=== PATIENT | male | born 1990 ===

== ENCOUNTER 2022-02-27 07:02 | Outpatient (CLI) | payer BC, SELFPAY ==
--- NOTE | ~2022-02-27 | XR_ITS ---
EXAMINATION: XR lumbar spine 2-3V EXAM DATE: 02/27/2022 08:02 INDICATION: Low back pain L sided lower back pain radiating down to pt's heel, majority of the L le g pain is at the posterior knee, x 4 moths, no trauma TECHNIQUE: Lumber spine frontal, lateral, lateral L5-S1 projections for interpretation. There is no prior study for comparison. FINDINGS: Mild to moderate disc disease L2-L5, mild at the other lumbar levels. The vertebral bodies are aligned in the AP dimension. There are no acute fractures identified. Sacrum, sacroiliac joints, sacral arcuate lines are intact. Paraspinal soft tissue is unremarkable. Mild lumbar facet arthropa thy. IMPRESSION: Mild to moderate lumbar disc disease, mild facet arthropathy. Reviewed, dictated and finalized at location B.
--- NOTE | ~2022-02-27 | XR_ITS ---
EXAMINATION: XR knee LT 3V DATE: 02/27/2022 08:02 INDICATION: Left knee pain. TECHNIQUE: 3 views of left knee including standing views were obtained. COMPARISON: None. FINDINGS: Bone alignment is normal. No fracture. There is mild osteoarthritis of patellofemoral harshad rtment characterized by tiny osteophytes. No knee joint effusion. IMPRESSION: 1. Mild left knee osteoarthritis. Reviewed, dictated and finalized at location A.
--- NOTE | ~2022-02-27 | MR_ITS ---
EXAMINATION: MR lumbar spine wo [facility] EXAM DATE: 02/27/2022 07:36 INDICATION: Low back pain . TECHNIQUE: Multi-sequential, multiplanar MR images of the lumbar spine were obtained without contrast . Sagittal T1, T2, T2 fat saturation images. Axial T2 weighted images. There is no prior study for comparison. FINDINGS: There is moderate disc disease L2-L5. The conus medullaris terminates at the L1/2 level and has normal signal intensity and morphology. The vertebral bodies are aligned in the AP dimension. T here are no suspicious marrow signal abnormalities. Paraspinal soft tissue is unremarkable. Level by level evaluation: T12-L1: Disc does not extend beyond the endplate margin. Facet arthropathy: None. Neural foraminal stenosis: No stenosis. Central canal stenosis: No stenosis. L1-L2: Disc does not extend beyond the endplate margin. Facet arthropathy: Mild. Neural foraminal stenosis: No stenosis. Central canal stenosis: No stenosis. L2-L3: There is a mild diffuse disc bulge. Facet arthropathy: Mild. Neural foraminal stenosis: No stenosis. Central canal stenosis: No stenosis. L3-L4: There is a mild diffuse disc bulge. Facet arthropathy: Mild. Neural foraminal stenosis: No stenosis. Central canal stenosis: No stenosis. L4-L5: There is a mild to moderate diffuse disc bulge. Facet arthropathy: Mild. Neural foraminal stenosis: No stenosis. Central canal stenosis: No stenosis. L5-S1: There is a minimal diffuse disc bulge. Facet arthropathy: Mild. Neural foraminal stenosis: No stenosis. Central canal stenosis: No stenosis. IMPRESSION: Moderate mid lumbar disc disease, mild arthropathy. No stenosis. Reviewed, dictated and finalized at location B.
== END 2022-02-27 07:03 ==
PROVIDERS: PCP Family Medicine; Visit Provider Family Medicine
DX: M47.815 Spondylosis without myelopathy or radiculopathy, thoracolumbar region (principal); M17.12 Unilateral primary osteoarthritis, left knee; M47.817 Spondylosis without myelopathy or radiculopathy, lumbosacral region
CPT/HCPCS: 72100; 72148; 73562